=== PATIENT | male | born 1990 | race Caucasian/White ===

== ENCOUNTER 2017-08-23 12:52 | Emergency (ER) | payer OTHER ==
[~2017-08-23] VITALS: Ht 185.4 cm; Wt 12.7 kg
[2017-08-23 13:31] LABS: ABSOLUTE BASOPHILS 0.1 thou/uL (0.0-0.2); ABSOLUTE EOSINOPHILS 0.3 thou/uL (0.0-0.7); ABSOLUTE LYMPHOCYTES 2.2 thou/uL (0.8-5.3); ABSOLUTE MONOCYTES 0.6 thou/uL (0.0-1.2); ABSOLUTE NEUTROPHILS 7.7 thou/uL (1.6-8.1); BASOPHILS 0.6 %; EOSINOPHILS 2.5 %; HEMATOCRIT 46.4 % (42.0-52.0); HEMOGLOBIN 15.8 gm/dL (14.0-18.0); LYMPHOCYTES 20.1 %; MCH 30.5 pg (26.0-34.0); MCHC 34.1 g/dL (28.0-37.0); MCV 89.5 fL (80.0-100.0); MONOCYTES 5.2 %; MPV 8.6 fl. (7.2-11.1); NUCLEATED RBCS 0 /100WBC; PLATELET COUNT* 288 thou/uL (150-400); POLYS 71.6 %; RBC 5.18 mil/uL (4.50-6.00); RDW-CV 12.4 % (10.5-14.5); WBC 10.7 thou/uL (4.0-11.0)
[2017-08-23 13:42] LABS: ANION GAP 11 mmol/L (7-16); BUN 11 mg/dL (7-18); CHLORIDE 103 mmol/L (98-107); CO2 26 mmol/L (21-32); CREATININE 0.7 mg/dL (0.6-1.3); GLUCOSE 97 mg/dL (70-99); POTASSIUM 3.8 mmol/L (3.5-5.1); SODIUM 140 mmol/L (136-145)
[2017-08-23 13:53] LABS: ALBUMIN 3.8 g/dL (3.4-5.0); ALKALINE PHOSPHATASE 70 U/L (46-116); NT-PRO BRAIN NAT PEPTIDE 10 pg/mL (<300); SGOT 20 U/L (15-37); SGPT 35 U/L (30-65); TOTAL BILIRUBIN 0.3 mg/dL (<0.1-1.0); TOTAL PROTEIN 8.2 g/dL (6.4-8.2); TROPONIN-I LEVEL <0.06 ng/mL (<0.06)
--- NOTE | 2017-08-23 14:51 | EKG ---
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: [place] BATES : 1990 Requested By: Stewart Diaz Order Number: [id number] MD: Jama Vanegas Measurements Intervals [place] Rate: 85 P: -9 OR: 151 QRS: -7 QRSD: 94 T: 23 QT: 354 QTc: 421 Interpretive Statements Sinus rhythm Compared to ECG 11/17/2015 19:19:08 No significant changes Electronically Signed On 08-23-2017 14:51:09 CDT by Jama Vanegas [email or web address] <ELECTRONICALLY SIGNED> By: Jama Vanegas MD, [facility] 08/23/17 1451 1301 1301 Jama Vanegas MD, FACC /EPI
[2017-08-23] MEDS ORDERED: MEDROLDOSEPACK PO (14:55)
[2017-08-23] MEDS ORDERED: ZANTAC 150MG T150 MG PO (14:55)
[2017-08-23 15:00] VITALS: BP 128/80
== END 2017-08-23 15:00 | disposition home or self-care (01) ==
LOC: M.ERS 12:52
PROVIDERS: Nurse Practitioner Psychiatric/Mental Health
DX: R07.89 Other chest pain (principal); F17.210 Nicotine dependence, cigarettes, uncomplicated